=== PATIENT | male | born 1970 | race Caucasian/White ===

== ENCOUNTER 2017-04-11 16:50 | Emergency (ER) | payer SELFPAY ==
[2017-04-11 18:00] LABS: #Basophils 0.1 thou/uL (0.0-0.2); #Eosinphils 0.2 thou/uL (0.0-0.7); #Lymphocytes 3.1 thou/uL (1.20-3.40); #Monocytes 0.6 thou/uL (0.11-0.59); #Neutrophils 5.9 thou/uL (1.40-6.50); %Basophils 1.3 % (0.0-1.0); %Eosinophils 1.6 % (0.0-10.0); %Lymphocytes 31.3 % (21.0-51.0); %Neutrophils 59.8 % (42.0-75.0); Mean Corpuscular HGB CONC 33.2 g/dL (32.0-36.0); Mean Corpuscular Hemoglobin 31.1 pg (27.0-31.0); Mean Corpuscular Volume 93.9 fl (80.0-94.0); Platelet Count 343 thou/uL (130-400); RBC Distribution Width 12.5 % (11.5-14.5); Red Blood Cell (RBC) Count 4.83 mill/uL (4.70-6.10); White Blood Cell (WBC) Count 9.9 thou/uL (4.8-10.8)
[2017-04-11 18:15] LABS: ALT (SGPT) 19 U/L (8-55); AST (SGOT) 17 U/L (5-34); Albumin 4.5 g/dL (3.5-5.0); Alkaline Phosphatase 87 U/L (40-150); Anion Gap 16 mmol/L (10-20); BUN (Urea Nitrogen) 7 mg/dL (8.9-20.6); Bilirubin, Total 0.7 mg/dL (0.2-1.2); Calc. Creatinine Clearance 0 mL/min (70-130); Calcium 9.2 mg/dL (7.8-10.44); Carbon Dioxide 26 mmol/L (22-29); Chloride 101 mmol/L (98-107); Estimated GFR-MDRD Greater than 90; Globulin 3.1 g/dL (2.4-3.5); Glucose 133 mg/dL (70-105); Lipase 76 U/L (8-78); Potassium 3.1 mmol/L (3.5-5.1); Protein, Total 7.6 g/dL (6.0-8.3); Sodium 140 mmol/L (136-145)
== END 2017-04-11 19:40 | disposition home or self-care (01) ==
LOC: MADERS 16:50
DX: R11.2 Nausea with vomiting, unspecified (principal); F17.210 Nicotine dependence, cigarettes, uncomplicated; G43.D1 Abdominal migraine, intractable; Z79.899 Other long term (current) drug therapy
CPT/HCPCS: 36415; 80053; 83690; 85025; 99284

== ENCOUNTER 2019-07-31 10:46 | Emergency (ER) | payer SELFPAY ==
[2019-07-31] MEDS ORDERED: Morphine 4 MG/ML VIAL ONE (11:22)
== END 2019-07-31 11:48 | disposition home or self-care (01) ==
LOC: MADERS 10:46
DX: M54.6 Pain in thoracic spine (principal); I10 Essential (primary) hypertension; F17.210 Nicotine dependence, cigarettes, uncomplicated
CPT/HCPCS: 96372; 99282; J2270

== ENCOUNTER 2019-11-13 08:55 | Emergency (ER) | payer SELFPAY ==
[2019-11-13] MEDS ORDERED: Ketorolac Tromethamine 30 MG/ML VIAL ONE ×2 (09:33→10:34)
[2019-11-13] MEDS ORDERED: Ondansetron PF 4 MG/2 ML Vial ONE (09:33)
[2019-11-13] MEDS ORDERED: Sodium Chloride 0.9% 1,000 ML ONE (09:33)
[2019-11-13 09:34] LABS: Bilirubin Negative (Negative); Blood, Urine Trace (Negative); Clarity Clear (Clear); Glucose, Urine (Dipstick) Negative (Negative); Ketone, Urine Negative (Negative); Leukocyte Negative (Negative); Nitrite Negative (Negative); Protein, Urine (Dipstick) Negative (Neg-Trace); Urobilinogen 0.2 mg/dL (Less than 2)
[2019-11-13 09:35] LABS: #Basophils 0.2 thou/uL (0.0-0.2); #Eosinphils 0.3 thou/uL (0.0-0.7); #Lymphocytes 2.5 thou/uL (1.20-3.40); #Monocytes 0.8 thou/uL (0.11-0.59); %Basophils 2.1 % (0.0-1.0); %Eosinophils 2.8 % (0.0-10.0); %Lymphocytes 25.2 % (21.0-51.0); %Monocytes 8.4 % (0.0-10.0); %Neutrophils 61.6 % (42.0-75.0); Hemoglobin 14.1 g/dL (14.0-18.0); Mean Corpuscular HGB CONC 32.1 g/dL (32.0-36.0); Mean Corpuscular Hemoglobin 30.1 pg (27.0-31.0); Mean Corpuscular Volume 93.7 fL (78.0-98.0); Mean Platelet Volume 6.9 fL (7.4-10.4); Platelet Count 419 thou/uL (130-400); RBC Distribution Width 12.5 % (11.5-14.5); Red Blood Cell (RBC) Count 4.68 mill/uL (4.70-6.10); White Blood Cell (WBC) Count 9.7 thou/uL (4.8-10.8)
[2019-11-13 09:39] LABS: RBC/HPF 0-3 HPF (0-3); Specific Gravity, Urine 1.033 (1.002-1.036); Squamous Epithelial None Seen HPF (0-3); WBC/HPF None Seen HPF (0-3)
[2019-11-13 09:40] LABS: Bacteria/HPF None Seen HPF (None Seen)
[2019-11-13 09:50] LABS: ALT (SGPT) 31 U/L (8-55); AST (SGOT) 22 U/L (5-34); Albumin 4.4 g/dL (3.5-5.0); Alkaline Phosphatase 72 U/L (40-110); Anion Gap 15 mmol/L (10-20); BUN (Urea Nitrogen) 13 mg/dL (8.9-20.6); Bilirubin, Total 0.2 mg/dL (0.2-1.2); Calc. Creatinine Clearance 0 mL/min (70-130); Calcium 8.7 mg/dL (7.8-10.44); Carbon Dioxide 20 mmol/L (22-29); Chloride 112 mmol/L (98-107); Estimated GFR-MDRD Greater than 90; Globulin 2.9 g/dL (2.4-3.5); Glucose 103 mg/dL (70-105); Potassium 3.6 mmol/L (3.5-5.1); Protein, Total 7.3 g/dL (6.0-8.3); Sodium 143 mmol/L (136-145)
--- NOTE | 2019-11-13 10:25 | CT ---
CT Stone Protocol History: Left flank pain with hematuria Comparison: CT abdomen and pelvis 2013 Findings: Lung bases are clear. No pericardial effusion. No obstructing renal calculus. Nonobstructive 2 or 3 mm left interpolar renal calculus. No obstructive 2 x 2 mm right interpolar crystal al calculus. Right interpolar hypodensity unchanged in size from 2013 indicating a benign cyst. The appendix is vi sualized and is normal. No free intraperitoneal gas or fluid. Noncontrast evaluation of the liver, spleen, pancreas, gallblad betzy are all unremarkable. Mild atherosclerotic plaque of the aorta. No acute osseous abnormality. No suspicious osteolytic or osteoblastic lesions. Impression: 1. Small nonobstructing bilateral renal calculi. 2. Normal appendix. 3. No acute inflammatory process within the abdomen or pelvis.
== END 2019-11-13 11:18 | disposition home or self-care (01) ==
LOC: MADERS 08:55
DX: N20.0 Calculus of kidney (principal); I10 Essential (primary) hypertension; F17.210 Nicotine dependence, cigarettes, uncomplicated
CPT/HCPCS: 36415; 74176; 80053; 81003; 81015; 85025; 94760; 96374; 96375; 96376; J1885; J2405; J7050

== ENCOUNTER 2020-02-15 17:12 | Emergency (ER) | payer SELFPAY ==
[~2020-02-15 17:12] MED LIST: Iopamidol 370 76% 125 ML VIAL FS ONE
[2020-02-15] MEDS ORDERED: Morphine 4 MG/ML VIAL ONE ×2 (18:13→19:34)
[2020-02-15] MEDS ORDERED: Morphine 2 MG/ML SYRINGE ONE (18:13)
[2020-02-15 18:35] LABS: #Basophils 0.2 thou/uL (0.0-0.2); #Eosinphils 0.3 thou/uL (0.0-0.7); #Lymphocytes 3.4 thou/uL (1.20-3.40); #Monocytes 0.4 thou/uL (0.11-0.59); #Neutrophils 5.3 thou/uL (1.40-6.50); %Basophils 2.5 % (0.0-1.0); %Lymphocytes 35.3 % (21.0-51.0); %Monocytes 4.3 % (0.0-10.0); %Neutrophils 54.9 % (42.0-75.0); Hemoglobin 14.6 g/dL (14.0-18.0); Mean Corpuscular HGB CONC 32.6 g/dL (32.0-36.0); Mean Corpuscular Hemoglobin 30.7 pg (27.0-31.0); Mean Corpuscular Volume 94.2 fL (78.0-98.0); Mean Platelet Volume 7.4 fL (7.4-10.4); Platelet Count 329 thou/uL (130-400); RBC Distribution Width 11.8 % (11.5-14.5); Red Blood Cell (RBC) Count 4.76 mill/uL (4.70-6.10); White Blood Cell (WBC) Count 9.7 thou/uL (4.8-10.8)
[2020-02-15 18:46] LABS: ALT (SGPT) 26 U/L (8-55); AST (SGOT) 20 U/L (5-34); Alkaline Phosphatase 67 U/L (40-110); Anion Gap 14 mmol/L (10-20); BUN (Urea Nitrogen) 7 mg/dL (8.9-20.6); Bilirubin, Total 0.3 mg/dL (0.2-1.2); Calc. Creatinine Clearance 0 mL/min (70-130); Calcium 8.1 mg/dL (7.8-10.44); Carbon Dioxide 20 mmol/L (22-29); Chloride 110 mmol/L (98-107); Estimated GFR-MDRD Greater than 90; Globulin 2.5 g/dL (2.4-3.5); Glucose 89 mg/dL (70-105); Lipase 132 U/L (8-78); Potassium 4.1 mmol/L (3.5-5.1); Protein, Total 6.5 g/dL (6.0-8.3); Sodium 140 mmol/L (136-145)
--- NOTE | 2020-02-15 18:57 | CT ---
CT ABDOMEN AND PELVIS WITH IV CONTRAST: 02/15/20 HISTORY: Abdomen pain. COMPARISON: 11/26/19. FINDINGS: The lung bases are clear. Cyst at the lateral cortex of the right kidney is 2.1 cm AP diameter on doug renteria's study. No solid masses. No stone or evidence of urinary tract obstruction. Solid organs are intact. No evidence of bowel obstruction or inflammation. Appendix is not inflamed. Mild calcification within the arterial structures. IMPRESSION: No acute abnormalities are demonstrated. Chronic type findings are stable. POS: BST
== END 2020-02-15 19:57 | disposition home or self-care (01) ==
LOC: MADERS 17:12
DX: R10.84 Generalized abdominal pain (principal); I10 Essential (primary) hypertension; G43.909 Migraine, unspecified, not intractable, without status migrainosus; F17.210 Nicotine dependence, cigarettes, uncomplicated; Z87.442 Personal history of urinary calculi
CPT/HCPCS: 74177; 80053; 83605; 83690; 85025; 96374; 96376; J2270; Q9967

== ENCOUNTER 2020-02-29 18:46 | Emergency (ER) | payer SELFPAY ==
[2020-02-29] MEDS ORDERED: Ondansetron PF 4 MG/2 ML Vial ONE (19:35)
[2020-02-29] MEDS ORDERED: Sodium Chloride 0.9% 1,000 ML ONE (19:35)
[2020-02-29] MEDS ORDERED: Morphine 4 MG/ML VIAL ONE (19:35)
[2020-02-29 20:11] LABS: ALT (SGPT) 25 U/L (8-55); AST (SGOT) 24 U/L (5-34); Albumin 4.4 g/dL (3.5-5.0); Alkaline Phosphatase 65 U/L (40-110); Anion Gap 16 mmol/L (10-20); BUN (Urea Nitrogen) 11 mg/dL (8.9-20.6); Bilirubin, Total 0.2 mg/dL (0.2-1.2); Calc. Creatinine Clearance 0 mL/min (70-130); Carbon Dioxide 18 mmol/L (22-29); Chloride 108 mmol/L (98-107); Globulin 3.2 g/dL (2.4-3.5); Glucose 95 mg/dL (70-105); Lipase 118 U/L (8-78); Potassium 4.2 mmol/L (3.5-5.1); Protein, Total 7.6 g/dL (6.0-8.3); Sodium 138 mmol/L (136-145)
[2020-02-29 20:12] LABS: Eosinophils 1 % (0-10); Hemoglobin 15.9 g/dL (14.0-18.0); Lymphocytes 35 % (21-51); MDiff Complete? YES; Mean Corpuscular HGB CONC 32.6 g/dL (32.0-36.0); Mean Corpuscular Hemoglobin 30.2 pg (27.0-31.0); Mean Corpuscular Volume 92.6 fL (78.0-98.0); Mean Platelet Volume 7.3 fL (7.4-10.4); Monocytes 4 % (0-10); Neutrophil 60 % (42-75); Platelet Count 336 thou/uL (130-400); RBC Distribution Width 11.8 % (11.5-14.5); Red Blood Cell (RBC) Count 5.28 mill/uL (4.70-6.10); White Blood Cell (WBC) Count 7.2 thou/uL (4.8-10.8)
[2020-02-29] MEDS ORDERED: Acetaminophen/Codeine 30-300mg Tablet ONE (20:46)
== END 2020-02-29 21:42 | disposition home or self-care (01) ==
LOC: MADERS 18:46
DX: R10.13 Epigastric pain (principal); I10 Essential (primary) hypertension; F17.210 Nicotine dependence, cigarettes, uncomplicated
CPT/HCPCS: 80053; 83690; 85025; 96374; 96375; J2270; J2405; J7050

== ENCOUNTER 2020-03-17 19:13 | Emergency (ER) | payer SELFPAY ==
[~2020-03-17 19:13] MED LIST changes: +Iopamidol 370 76% 100 ML VIAL ONE; -Iopamidol 370 76% 125 ML VIAL FS ONE; +Sodium Chloride 0.9% 1,000 ML BAG ONE
[2020-03-17 19:55] LABS: ALT (SGPT) 34 U/L (8-55); AST (SGOT) 29 U/L (5-34); Albumin 4.5 g/dL (3.5-5.0); Alkaline Phosphatase 79 U/L (40-110); Anion Gap 17 mmol/L (10-20); BUN (Urea Nitrogen) 11 mg/dL (8.9-20.6); Bilirubin, Total 0.7 mg/dL (0.2-1.2); Calc. Creatinine Clearance 0 mL/min (70-130); Calcium 8.4 mg/dL (7.8-10.44); Carbon Dioxide 17 mmol/L (22-29); Chloride 107 mmol/L (98-107); Glucose 119 mg/dL (70-105); Lipase 128 U/L (8-78); Potassium 4.2 mmol/L (3.5-5.1); Protein, Total 7.5 g/dL (6.0-8.3); Sodium 137 mmol/L (136-145)
[2020-03-17 19:56] LABS: CK (CPK) 121 U/L (30-200); CRP (Inflammatory) Less than 0.50 mg/dL (= or < 0.5)
[2020-03-17 20:21] LABS: Hemoglobin 16.9 g/dL (14.0-18.0); Red Blood Cell (RBC) Count 5.47 mill/uL (4.70-6.10); White Blood Cell (WBC) Count 12.4 thou/uL (4.8-10.8)
[2020-03-17 20:22] LABS: Mean Corpuscular HGB CONC 34.4 g/dL (32.0-36.0); Mean Corpuscular Hemoglobin 30.9 pg (27.0-31.0); Mean Corpuscular Volume 89.8 fL (78.0-98.0); Platelet Count 357 thou/uL (130-400); RBC Distribution Width 11.1 % (11.5-14.5)
[2020-03-17 20:23] LABS: Band 2 % (5-11); Eosinophils 2 % (0-10); Lymphocytes 30 % (21-51); Manual Diff?? YES; Monocytes 7 % (0-10); Reactive Lymphocytes 3 % (0-10)
[2020-03-17 20:24] LABS: Giant Platelets SLIGHT; Large Platelets MODERATE
[2020-03-17] MEDS ORDERED: Loperamide HCl 2 MG CAP ONE (20:27)
[2020-03-17] MEDS ORDERED: Ketorolac Tromethamine 30 MG/ML VIAL ONE ×2 (20:27→21:30)
[2020-03-17 20:34] LABS: Bilirubin Negative (Negative); Blood, Urine Negative (Negative); Clarity Clear (Clear); Glucose, Urine (Dipstick) Negative (Negative); Ketone, Urine Negative (Negative); Leukocyte Negative (Negative); Nitrite Negative (Negative); Protein, Urine (Dipstick) Negative (Neg-Trace); Urobilinogen 0.2 mg/dL (Less than 2)
[2020-03-17 20:43] LABS: Amphetamine Not Detected (NotDetected); Benzodiazepine Screen Not Detected (NotDetected); Cocaine Metabolite Screen Not Detected (NotDetected); Methamphetamine Not Detected (NotDetected); Opiate Screen Not Detected (NotDetected); Phencyclidine (PCP) Not Detected (NotDetected); THC/Cannabinoid Screen Not Detected (NotDetected); Tricyclic Screen Not Detected (NotDetected)
[2020-03-17 20:44] LABS: Barbiturates Screen Not Detected (NotDetected); Medtox Control Line Valid? VALID (VALID); Methadone Not Detected (NotDetected); Oxycodone Screen Not Detected (NotDetected)
--- NOTE | 2020-03-17 20:50 | RAD ---
PORTABLE CHEST: Date: 03-17-2020 PROVIDED CLINICAL HISTORY: Chest pain FINDINGS: Comparison 02-09-16. Cardiac and mediastinal silhouette is within normal limits. No focal consolidati on, pleural fluid or pneumothorax apparent. IMPRESSION: No evidence for an acute cardiopulmonary process. POS: GIANNA
--- NOTE | 2020-03-17 21:12 | CT ---
CT Abdomen Pelvis W Con: 03/17/2020 8:27 PM CLINICAL INFORMATION: Abdominal pain COMPARISON: 02/15/2020 TECHNIQUE: Multiple contiguous axial images were obtained and a CT of the abdomen and pelvis with IV contrast. C oronal and sagittal reformats were performed. FINDINGS: Lower Chest: within normal limits. Abdomen: Liver: within normal limits. Bile Ducts: Normal caliber. Gallbladder: No calcified gallstones. Normal caliber wall. Pancreas: within normal limits. Spleen: within normal limits. Adrenals: within normal limits. Kidneys: 2.1 cm right renal cyst. Pelvis: Reproductive Organs: No pelvic masses. Ureters: within normal limits. Bladder: within normal limits. Peritoneum: No ascites or free air, no fluid collection. Bowel: Normal caliber. Normal appendix. Mesentery and Retroperitoneum: No enlarged mesenteric or retroperitoneal lymph nodes. Vessels: Atherosclerotic calcifications. Abdominal Wall: within normal limits. Bones: Degenerative changes in the spine. IMPRESSION: 1. No evidence of acute intraabdominal or pelvic abnormality. 2. Right renal cyst
[2020-03-17] MEDS ORDERED: Ondansetron PF 4 MG/2 ML Vial ONE ×2 (21:30→21:31)
[2020-03-17 22:48] LABS: MDiff Complete? YES
== END 2020-03-17 21:41 | disposition home or self-care (01) ==
LOC: MADERS 19:13
DX: K85.90 Acute pancreatitis without necrosis or infection, unspecified (principal); F10.129 Alcohol abuse with intoxication, unspecified; F17.210 Nicotine dependence, cigarettes, uncomplicated; Y90.8 Blood alcohol level of 240 mg/100 ml or more; I10 Essential (primary) hypertension; Z71.6 Tobacco abuse counseling; Z87.442 Personal history of urinary calculi
CPT/HCPCS: 71045; 74177; 80053; 80306; 80307; 81003; 82150; 82550; 83690; 84484; 85025; 86140; 93005; 94760; 96374; 96375; 96376; 99406; J1885; J2405; J7050; Q9967

== ENCOUNTER 2020-07-09 23:54 | Emergency (ER) | payer SELFPAY ==
[2020-07-10] MEDS ORDERED: Lidocaine 1% w/Epinephrine 1:100K 20 ML VIAL ONE (00:32)
[2020-07-10] MEDS ORDERED: Bacitracin 1 PK ONE (01:08)
[2020-07-10] MEDS ORDERED: hydrOXYzine 25 MG TAB ONE (01:10)
== END 2020-07-10 01:23 | disposition home or self-care (01) ==
LOC: MADERS 23:54
DX: S61.411A Laceration without foreign body of right hand, initial encounter (principal); I10 Essential (primary) hypertension; F17.210 Nicotine dependence, cigarettes, uncomplicated; W25.XXXA Contact with sharp glass, initial encounter
CPT/HCPCS: 26418

== ENCOUNTER 2020-07-20 16:42 | Emergency (ER) | payer SELFPAY ==
[2020-07-20] MEDS ORDERED: Ondansetron PF 4 MG/2 ML Vial ONE (17:33)
[2020-07-20] MEDS ORDERED: Sodium Chloride 0.9% 1,000 ML ONE (17:33)
[2020-07-20 17:37] LABS: #Basophils 0.2 thou/uL (0.0-0.2); #Eosinphils 0.2 thou/uL (0.0-0.7); #Lymphocytes 2.2 thou/uL (1.20-3.40); #Monocytes 0.5 thou/uL (0.11-0.59); #Neutrophils 5.6 thou/uL (1.40-6.50); %Basophils 2.7 % (0.0-1.0); %Eosinophils 2.4 % (0.0-10.0); %Lymphocytes 25.3 % (21.0-51.0); %Monocytes 6.2 % (0.0-10.0); %Neutrophils 63.4 % (42.0-75.0); Hemoglobin 15.4 g/dL (14.0-18.0); Mean Corpuscular Hemoglobin 31.3 pg (27.0-31.0); Mean Corpuscular Volume 94.6 fL (78.0-98.0); Mean Platelet Volume 8.2 fL (7.4-10.4); Platelet Count 343 thou/uL (130-400); RBC Distribution Width 12.6 % (11.5-14.5); Red Blood Cell (RBC) Count 4.92 mill/uL (4.70-6.10); White Blood Cell (WBC) Count 8.8 thou/uL (4.8-10.8)
[2020-07-20] MEDS ORDERED: Ketorolac Tromethamine 30 MG/ML VIAL ONE (17:39)
[2020-07-20 17:56] LABS: ALT (SGPT) 215 U/L (8-55); AST (SGOT) 113 U/L (5-34); Albumin 4.6 g/dL (3.5-5.0); Alcohol 79 mg/dL (Less than 10); Alkaline Phosphatase 100 U/L (40-110); Anion Gap 19 mmol/L (10-20); BUN (Urea Nitrogen) 7 mg/dL (8.9-20.6); Bilirubin, Total 0.6 mg/dL (0.2-1.2); Calc. Creatinine Clearance 0 mL/min (70-130); Carbon Dioxide 18 mmol/L (22-29); Chloride 105 mmol/L (98-107); Globulin 2.9 g/dL (2.4-3.5); Glucose 94 mg/dL (70-105); Lipase 73 U/L (8-78); Potassium 3.7 mmol/L (3.5-5.1); Protein, Total 7.5 g/dL (6.0-8.3); Sodium 138 mmol/L (136-145)
[2020-07-20] MEDS ORDERED: Sucralfate 1 GM TAB ONE (18:22)
[2020-07-20] MEDS ORDERED: Pantoprazole 40 MG VIAL ONE (18:22)
== END 2020-07-20 18:30 | disposition home or self-care (01) ==
LOC: MADERS 16:42
DX: K75.9 Inflammatory liver disease, unspecified (principal); F10.10 Alcohol abuse, uncomplicated; Y90.3 Blood alcohol level of 60-79 mg/100 ml; I10 Essential (primary) hypertension; F17.210 Nicotine dependence, cigarettes, uncomplicated; Z87.442 Personal history of urinary calculi
CPT/HCPCS: 80053; 80307; 83605; 83690; 85025; 96374; 96375; C9113; J1885; J2405; J7050

== ENCOUNTER 2020-11-29 20:53 | Emergency (ER) | payer SELFPAY ==
[2020-11-29] MEDS ORDERED: Lidocaine 1% w/Epinephrine 1:100K 20 ML VIAL ONE (21:44)
[2020-11-29] MEDS ORDERED: Boostrix 0.5 ML (Tdap) VIAL ONE (22:13)
== END 2020-11-29 22:51 | disposition home or self-care (01) ==
LOC: MADERS 20:53
DX: S61.112A Laceration without foreign body of left thumb with damage to nail, initial encounter (principal); I10 Essential (primary) hypertension; F17.210 Nicotine dependence, cigarettes, uncomplicated; G43.909 Migraine, unspecified, not intractable, without status migrainosus; Z87.442 Personal history of urinary calculi; W22.8XXA Striking against or struck by other objects, initial encounter
CPT/HCPCS: 12001; 90471; 90715

== ENCOUNTER 2021-10-19 18:10 | Emergency (ER) | payer SELFPAY ==
[2021-10-19] MEDS ORDERED: Sodium Chloride 0.9% 1,000 ML ONE (18:53)
[2021-10-19] MEDS ORDERED: Metoclopramide HCl 10 MG/2 ML VIAL ONE (18:53)
[2021-10-19] MEDS ORDERED: Metoclopramide HCl 10 MG TAB ONE (18:53)
[2021-10-19] MEDS ORDERED: Pantoprazole 40 MG VIAL ONE (18:53)
[2021-10-19] MEDS ORDERED: Ketorolac Tromethamine 30 MG/ML VIAL ONE (18:53)
[2021-10-19 19:23] LABS: #Basophils 0.2 thou/uL (0.0-0.2); #Eosinphils 0.1 thou/uL (0.0-0.7); #Lymphocytes 2.2 thou/uL (1.20-3.40); #Monocytes 0.3 thou/uL (0.11-0.59); #Neutrophils 5.7 thou/uL (1.40-6.50); %Basophils 2.2 % (0.0-1.0); %Eosinophils 1.7 % (0.0-10.0); %Monocytes 3.9 % (0.0-10.0); %Neutrophils 66.2 % (42.0-75.0); Hemoglobin 16.4 g/dL (14.0-18.0); Mean Corpuscular HGB CONC 32.1 g/dL (32.0-36.0); Mean Corpuscular Volume 96.4 fL (78.0-98.0); Platelet Count 300 thou/uL (130-400); Red Blood Cell (RBC) Count 5.31 mill/uL (4.70-6.10); White Blood Cell (WBC) Count 8.5 thou/uL (4.8-10.8)
[2021-10-19 19:40] LABS: ALT (SGPT) 87 U/L (8-55); AST (SGOT) 40 U/L (5-34); Albumin 4.6 g/dL (3.5-5.0); Alcohol 141 mg/dL (Less than 10); Alkaline Phosphatase 80 U/L (40-110); Anion Gap 19 mmol/L (10-20); BUN (Urea Nitrogen) 12 mg/dL (8.9-20.6); Bilirubin, Total 0.4 mg/dL (0.2-1.2); Calc. Creatinine Clearance 0 mL/min (70-130); Calcium 8.7 mg/dL (7.8-10.44); Carbon Dioxide 21 mmol/L (22-29); Chloride 106 mmol/L (98-107); Estimated GFR 98; Glucose 102 mg/dL (70-105); Lipase 67 U/L (8-78); Protein, Total 7.6 g/dL (6.0-8.3); Sodium 142 mmol/L (136-145)
== END 2021-10-19 19:58 | disposition left against medical advice (07) ==
LOC: MADERS 18:10
DX: R11.2 Nausea with vomiting, unspecified (principal); R10.31 Right lower quadrant pain; R10.32 Left lower quadrant pain; I10 Essential (primary) hypertension; F17.210 Nicotine dependence, cigarettes, uncomplicated; Z87.442 Personal history of urinary calculi
CPT/HCPCS: 36415; 80053; 80307; 83690; 85025; 96374; 96375; C9113; J1885; J2765; J7050

== ENCOUNTER 2024-04-19 08:02 | Emergency (ER) | payer BC, SELFPAY ==
[2024-04-19] MEDS ORDERED: Amlodipine 5 MG TAB ONE (08:35)
[2024-04-19 09:10] LABS: Hematocrit 48.5 % (42.0-52.0); Hemoglobin 15.4 g/dL (14.0-18.0); Mean Corpuscular HGB CONC 31.7 g/dL (32.0-36.0); Mean Corpuscular Hemoglobin 30.2 pg (27.0-31.0); Mean Corpuscular Volume 95.3 fl (78.0-98.0); Mean Platelet Volume 9.2 fL (7.4-10.4); Platelet Count 247 10x3/uL (130-400); RBC Distribution Width 12.9 % (11.5-14.5); Red Blood Cell (RBC) Count 5.09 mill/uL (4.70-6.10); White Blood Cell (WBC) Count 5.8 10x3/uL (4.8-10.8)
[2024-04-19 09:14] LABS: ALT (SGPT) 177 U/L (Less than 45); AST (SGOT) 104 U/L (11-34); Albumin 4.4 g/dL (3.1-4.5); Alkaline Phosphatase 95 U/L (40-110); Anion Gap 13 mmol/L (10-20); BUN (Urea Nitrogen) 8 mg/dL (8.4-25.7); Bilirubin, Total 0.4 mg/dL (0.3-1.2); Calc. Creatinine Clearance 0 mL/min (70-130); Calcium 8.5 mg/dL (7.8-10.44); Carbon Dioxide 19 mmol/L (22-29); Chloride 106 mmol/L (98-107); Estimated GFR 106; Glucose 88 mg/dL (70-105); Magnesium 1.6 mg/dL (1.6-2.6); Potassium 3.6 mmol/L (3.5-5.1); Protein, Total 7.4 g/dL (6.0-8.3); Sodium 134 mmol/L (136-145)
[2024-04-19 09:16] LABS: Band 2 % (5-11); Eosinophils 2 % (0-10); Lymphocytes 21 % (21-51); MDiff Complete? YES; Manual Diff?? YES; Monocytes 6 % (0-10); Neutrophil 68 % (42-75)
[2024-04-19 09:17] LABS: Platelet Adequacy Comment Appears Adequate; RBC Morph Comment Within Normal Limits
[2024-04-19 09:19] LABS: Troponin I Less than 0.010 ng/mL (< 0.028)
== END 2024-04-19 10:05 | disposition home or self-care (01) ==
LOC: MADERS 08:02
DX: I10 Essential (primary) hypertension (principal); G89.29 Other chronic pain; M25.511 Pain in right shoulder; R74.01 Elevation of levels of liver transaminase levels; F17.210 Nicotine dependence, cigarettes, uncomplicated
CPT/HCPCS: 71045; 80053; 83735; 84484; 85025; 93005; 94760